=== PATIENT | female | born 1955 | race Caucasian/White ===

== ENCOUNTER 2017-01-31 13:51 | Inpatient (IN) | payer MEDICAID ==
[2017-01-31 15:38] LABS: BASOPHILS 0.1 % (0-2); EOSINOPHILS 1.6 % (0-7); HEMATOCRIT 38.7 % (36.0-48.0); HEMOGLOBIN 12.9 g/dL (12-16); IMMATURE GRANULOCYTES 0.4 % (0-5); LYMPHOCYTES 5.1 % (15-50); MCH 29.1 pg (26.0-34.0); MCHC 33.3 g/dL (31.0-37.0); MCV 87.4 fL (80.0-100.0); MEAN PLATELET VOLUME 9.9 fL (7.4-10.4); MONOCYTES 5.8 % (2-11); PLATELET COUNT 288 10x3/uL (130-400); RBC 4.43 10x6/uL (4.00-5.40); RDW 13.9 % (11.5-14.5); WBC 18.9 10x3/uL (4.8-10.8)
[2017-01-31 15:57] LABS: ANION GAP 15.8 mmol/L (8-16); CALCIUM 9.1 mg/dL (8.5-10.1); CARBON DIOXIDE 25.2 mmol/L (21.0-32.0); CREATININE - SERUM 0.9 mg/dL (0.6-1.3)
--- NOTE | 2017-01-31 18:37 | NUR ---
REPORT RECEIVED FROM GASTON IN THE ER.
--- NOTE | 2017-01-31 19:38 | NUR ---
PATIENT ARRIVED FROM ER VIA STRETCHER, ALERT AND ORIENTED TO ROOM AND CALL LIGHT. FAMILY IS AT BEDSIDE.
--- NOTE | 2017-01-31 19:40 | NUR ---
TELETYPE TELEGRAPHER AT BEDSIDE TO OBTAIN VITALS, CALL LIGHT IN REACH. WILL CONTINUE WITH PLAN OF CARE.
[2017-01-31] MEDS ORDERED: LISINOPRIL-HCTZ1 T13 PO (19:42)
[2017-01-31] MEDS ORDERED: GLIMEPIRIDE4 MG PO (19:43)
[2017-01-31] MEDS ORDERED: NEURONTIN600 MG PO (19:43)
[2017-01-31] MEDS ORDERED: ZANTAC150 MG PO (19:44)
[2017-01-31] MEDS ORDERED: MACRODANTIN100 MG PO (19:44)
[2017-01-31] MEDS ORDERED: LEVAQUIN750 MG PO (19:45)
[2017-01-31] MEDS ORDERED: ZOLOFT100 MG PO (19:45)
[2017-01-31 20:00] VITALS: BP 134/60
[2017-02-01] VITALS: BP 120/62
[2017-02-01 04:00] VITALS: BP 131/57
[2017-02-01 05:33] LABS: BASOPHILS 0.1 % (0-2); EOSINOPHILS 0.2 % (0-7); HEMATOCRIT 33.8 % (36.0-48.0); HEMOGLOBIN 11.4 g/dL (12-16); IMMATURE GRANULOCYTES 0.3 % (0-5); MCH 28.9 pg (26.0-34.0); MCHC 33.7 g/dL (31.0-37.0); MCV 85.8 fL (80.0-100.0); MEAN PLATELET VOLUME 10.2 fL (7.4-10.4); MONOCYTES 6.3 % (2-11); NEUTROPHILS 84.1 % (40-80); PLATELET COUNT 333 10x3/uL (130-400); RBC 3.94 10x6/uL (4.00-5.40); RDW 13.9 % (11.5-14.5); WBC 17.2 10x3/uL (4.8-10.8)
[2017-02-01 05:56] LABS: ANION GAP 13.9 mmol/L (8-16); CALCIUM 8.8 mg/dL (8.5-10.1); CARBON DIOXIDE 23.8 mmol/L (21.0-32.0); CREATININE - SERUM 1.1 mg/dL (0.6-1.3); POTASSIUM - SERUM 3.7 mmol/L (3.5-5.1)
--- NOTE | 2017-02-01 07:17 | NUR ---
PT LAYING TO R SIDE SLEEPING NO S/S DISTRESS NOTED RR EVEN AND UNLABORED WILL CONT TO MONITOR
[2017-02-01 08:03] VITALS: BP 127/74
[2017-02-01 10:05] VITALS: BMI 27.6
--- NOTE | 2017-02-01 10:19 | NUR ---
PT C/O VAUGHN. NO PAIN MEDICATION. PAGED EARNESTINE RICHARD ENROLLMENT COORDINATOR FOR TYLENOL OR IBUPROFEN PER PT REQUEST
[2017-02-01 12:38] VITALS: BP 140/72
[2017-02-01] MEDS ORDERED: GLUCOPHAGE500 MG PO (14:02)
[2017-02-01 16:14] VITALS: BP 120/65
[2017-02-01 20:00] VITALS: BP 109/57
--- NOTE | 2017-02-01 21:00 | NUR ---
PATIENT IS ALERT WITH SPOUSE AT BEDSIDE. DENIES ANY NEEDS AT THIS TIME, CALL LIGHT IN REACH. WILL CONTINUE TO MONITOR.
[2017-02-02] VITALS: BP 116/65
--- NOTE | 2017-02-02 01:44 | NUR ---
PT LYING ON HER RIGHT SIDE, RESTING COMFORTABLY, RESPIRATIONS EVEN AND UNLABORED. CONTINUE TO MONITOR CLOSELY.
[2017-02-02 04:00] VITALS: BP 97/46
[2017-02-02 05:02] LABS: BASOPHILS 0.1 % (0-2); EOSINOPHILS 4.2 % (0-7); HEMATOCRIT 35.2 % (36.0-48.0); HEMOGLOBIN 11.6 g/dL (12-16); IMMATURE GRANULOCYTES 0.3 % (0-5); LYMPHOCYTES 26.2 % (15-50); MCH 28.8 pg (26.0-34.0); MCV 87.3 fL (80.0-100.0); MEAN PLATELET VOLUME 10.2 fL (7.4-10.4); MONOCYTES 7.3 % (2-11); NEUTROPHILS 61.9 % (40-80); PLATELET COUNT 314 10x3/uL (130-400); RBC 4.03 10x6/uL (4.00-5.40); RDW 13.8 % (11.5-14.5); WBC 13.6 10x3/uL (4.8-10.8)
[2017-02-02 05:40] LABS: ALBUMIN 3.1 g/dL (3.4-5.0); ALKALINE PHOSPHATASE 81 U/L (46-116); ALT (SGPT) 32 U/L (10-68); BILIRUBIN - TOTAL 0.16 mg/dL (0.2-1.3); CALCIUM 8.7 mg/dL (8.5-10.1); CARBON DIOXIDE 23.9 mmol/L (21.0-32.0); CHLORIDE - SERUM 102 mmol/L (98-107); MAGNESIUM - SERUM 1.4 mg/dL (1.8-2.4); POTASSIUM - SERUM 3.4 mmol/L (3.5-5.1); PROTEIN - SERUM 6.6 g/dL (6.4-8.2); SODIUM 138 mmol/L (136-145); UREA NITROGEN 13 mg/dL (7-18); eGFR NON AFRICAN AMERICAN 90 mL/min (90-120)
[2017-02-02 05:42] LABS: CALC OSMOLALITY 278 mosm/kg (275-300); CREATININE - SERUM 0.7 mg/dL (0.6-1.3); GLUCOSE 161 mg/dL (74-106)
--- NOTE | 2017-02-02 07:00 | NUR ---
RECEIVED REPORT. ASSUMED CARE OF PATIENT. CALL LIGHT WITHIN REACH. IV FLUIDS INFUSING AT KVO. DENIES NEEDS AT THIS TIME. TELEMETRY PADS REPLACED, SR 64. NO DISTRESS. RESP EVEN AND UNLABORED.
[2017-02-02 08:00] VITALS: BP 102/54
--- NOTE | 2017-02-02 09:01 | NUR ---
EP INITIATED FOR K+ 3.4, LAW REDRAW ORDERED FOR 1300 PER PROTOCOL.
--- NOTE | 2017-02-02 11:42 | NUR ---
FSBS 283. 6 UNITS HUMALOG ADMINISTERED PER SLIDING SCALE. NO DISTRESS.
[2017-02-02 12:00] VITALS: BP 119/92
[2017-02-02 15:59] VITALS: BP 111/57
--- NOTE | 2017-02-02 16:46 | NUR ---
FSBS 307. 8 UNITS HUMALOG ADMINISTERED PER SLIDING SCALE. CONSUMING PM MEAL AT THIS TIME.
--- NOTE | 2017-02-02 18:35 | NUR ---
RESTING IN BED. NO DISTRESS. DENIES NEEDS.
[2017-02-02 20:00] VITALS: BP 131/65
--- NOTE | 2017-02-02 20:56 | NUR ---
HS MED GIVEN WITH FRESH ICE WATER, BS 309, COVERED PER S/S. DENIES PAIN OR NEEDS, BED LOW, CL IN REACH.
--- NOTE | 2017-02-02 23:53 | NUR ---
IN BED WATCHING TV, PT DENIES NEEDS.
[2017-02-03] VITALS: BP 125/69
--- NOTE | 2017-02-03 01:26 | NUR ---
RESTING WITH EYES CLOSED, RESPERATIONS EVEN, NO S/S DISTRESS NOTED.
[2017-02-03 04:00] VITALS: BP 123/81
--- NOTE | 2017-02-03 04:30 | NUR ---
PEARL PELLER AT BED SIDE TO OBTAIN VITALS.
[2017-02-03 05:29] LABS: BASOPHILS 0.2 % (0-2); HEMATOCRIT 34.2 % (36.0-48.0); HEMOGLOBIN 11.2 g/dL (12-16); IMMATURE GRANULOCYTES 0.3 % (0-5); LYMPHOCYTES 24.6 % (15-50); MCH 28.4 pg (26.0-34.0); MCHC 32.7 g/dL (31.0-37.0); MCV 86.8 fL (80.0-100.0); MONOCYTES 6.5 % (2-11); NEUTROPHILS 63.4 % (40-80); PLATELET COUNT 302 10x3/uL (130-400); RBC 3.94 10x6/uL (4.00-5.40); WBC 9.6 10x3/uL (4.8-10.8)
[2017-02-03 05:46] LABS: ALBUMIN 3.1 g/dL (3.4-5.0); ANION GAP 14.6 mmol/L (8-16); BILIRUBIN - TOTAL 0.24 mg/dL (0.2-1.3); CARBON DIOXIDE 26.7 mmol/L (21.0-32.0); CREATININE - SERUM 0.9 mg/dL (0.6-1.3); POTASSIUM - SERUM 4.3 mmol/L (3.5-5.1); PROTEIN - SERUM 6.4 g/dL (6.4-8.2)
--- NOTE | 2017-02-03 07:00 | NUR ---
RECEIVED REPORT. ASSUMED CARE OF PATIENT. CALL LIGHT WITHIN REACH. RESTING WITH EYES OPEN, DENIES NEEDS AT THIS TIME. GRANDSON AT BEDSIDE. NO DISTRESS.
[2017-02-03 08:00] VITALS: BP 113/65
--- NOTE | 2017-02-03 09:36 | NUR ---
OOB TO WHEELCHAIR. PATIENT LEFT UNIT FOR CXR. NO DISTRESS UPON LEAVING UNIT.
--- NOTE | 2017-02-03 11:39 | NUR ---
FSBS 305. 8 UNITS HUMALOG ADMINISTERED PER SLIDING SCALE. NO DISTRESS.
[2017-02-03] MEDS ORDERED: LEVAQUIN500 MG PO (12:57)
--- NOTE | 2017-02-03 14:59 | NUR ---
PATIENT LYING IN BED WITH FAMILY AT BEDSIDE. PATIENT AWAITING DISCHARGE INSTRUCTIONS. NO DISTRESS.
--- NOTE | 2017-02-03 15:22 | NUR ---
22 GAUGE IV REMOVED FROM RIGHT AC. PATIENT IS BEING DISCHARGED TO HOME. NO BLEEDING FROM SITE. 2X2 GAUZE APPLIED AND SECURED WITH TAPE. TOLERATED IV REMOVAL WELL. NO DISTRESS. CATHETER TIP INTACT.
--- NOTE | 2017-02-03 15:41 | NUR ---
1525 DISCHARGE INSTRUCTIONS PROVIDED. PATIENT VERBALIZED UNDERSTANDING OF ALL INSTRUCTIONS PROVIDED FOR FOLLOW UP APPTS AND PICKING UP HER PRESCRIPTION MEDICATIONS CALLED TO THE PHARMACY. 1535 PATIENT LEFT UNIT VIA WHEELCHAIR WITH ALL PERSONAL BELONGINGS. PATIENT IN NO DISTRESS UPON LEAVING UNIT. PATIENT DISCHARGED TO HOME WITH FAMILY VIA PERSONAL CAR.
[2017-02-04 12:13] LABS: IMMUNOGLOBULIN E 7 IU/mL (0-100)
== END 2017-02-03 15:40 | disposition home or self-care (01) | DRG 179 ==
LOC: D.ER 13:51 → D.M2 17:28
PROVIDERS: Internal Medicine Gastroenterology; Internal Medicine Pulmonary Disease; Nurse Practitioner Acute Care; ADMIT Family Medicine
DX: J69.0 Pneumonitis due to inhalation of food and vomit (principal); K21.9 Gastro-esophageal reflux disease without esophagitis; K62.3 Rectal prolapse; E11.65 Type 2 diabetes mellitus with hyperglycemia; E11.40 Type 2 diabetes mellitus with diabetic neuropathy, unspecified; E11.43 Type 2 diabetes mellitus with diabetic autonomic (poly)neuropathy; K31.84 Gastroparesis; D64.9 Anemia, unspecified; I69.991 Dysphagia following unspecified cerebrovascular disease; R13.10 Dysphagia, unspecified; K59.00 Constipation, unspecified; J98.01 Acute bronchospasm; J44.9 Chronic obstructive pulmonary disease, unspecified; Z87.891 Personal history of nicotine dependence

== ENCOUNTER 2017-06-07 13:40 | Emergency (ER) | payer MEDICAID | END 2017-06-07 19:25 | disposition home or self-care (01) | LOC: D.ER 13:40 | DX: S16.1XXA Strain of muscle, fascia and tendon at neck level, initial encounter (principal); V43.52XA Car driver injured in collision with other type car in traffic accident, initial encounter; Y93.89 Activity, other specified; Y92.410 Unspecified street and highway as the place of occurrence of the external cause; I10 Essential (primary) hypertension; E11.9 Type 2 diabetes mellitus without complications ==

== ENCOUNTER 2017-10-10 13:51 | Emergency (ER) | payer MEDICAID ==
[~2017-10-10] VITALS: Ht 172.7 cm; Wt 95.0 kg
[~2017-10-10 13:51] MED LIST: GLIMEPIRIDE4 MG PO; GLUCOPHAGE500 MG PO; LEVAQUIN500 MG PO; LEVAQUIN750 MG PO; LISINOPRIL-HCTZ1 T13 PO; MACRODANTIN100 MG PO; NEURONTIN600 MG PO; ZANTAC150 MG PO; ZOLOFT100 MG PO
[2017-10-10 14:13] VITALS: Ht 172.7 cm; Wt 95.0 kg
[2017-10-10] MEDS ORDERED: DICLOFENAC SODI50 MG PO (18:16)
[2017-10-10 18:24] VITALS: BP 133/80
== END 2017-10-10 18:24 | disposition home or self-care (01) ==
LOC: D.ER 13:51
DX: S32.010A Wedge compression fracture of first lumbar vertebra, initial encounter for closed fracture (principal); W10.9XXA Fall (on) (from) unspecified stairs and steps, initial encounter; Y93.89 Activity, other specified; Y92.019 Unspecified place in single-family (private) house as the place of occurrence of the external cause; M54.5 Low back pain

== ENCOUNTER 2017-10-26 15:20 | Inpatient (IN) | payer MEDICAID ==
[~2017-10-26] VITALS: Ht 174.5 cm; Wt 92.0 kg
[~2017-10-26 15:20] MED LIST changes: +DICLOFENAC SODI50 MG PO
[2017-10-26 16:26] LABS: BASOPHILS 0.3 % (0-2); EOSINOPHILS 3.3 % (0-7); HEMATOCRIT 42.8 % (36.0-48.0); HEMOGLOBIN 14.3 g/dL (12-16); IMMATURE GRANULOCYTES 0.2 % (0-5); LYMPHOCYTES 24.1 % (15-50); MCH 28.9 pg (26.0-34.0); MCHC 33.4 g/dL (31.0-37.0); MCV 86.5 fL (80.0-100.0); MEAN PLATELET VOLUME 10.5 fL (7.4-10.4); MONOCYTES 8.6 % (2-11); NEUTROPHILS 63.5 % (40-80); PLATELET COUNT 357 10x3/uL (130-400); RBC 4.95 10x6/uL (4.00-5.40); RDW 13.1 % (11.5-14.5); WBC 12.4 10x3/uL (4.8-10.8)
[2017-10-26 16:36] LABS: APPEARANCE CLEAR (CLEAR); BILIRUBIN NEGATIVE (NEGATIVE); COLOR YELLOW (YELLOW); GLUCOSE 1000 mg/dL (NEGATIVE); KETONE NEGATIVE (NEGATIVE); NITRITE NEGATIVE (NEGATIVE); PROTEIN NEGATIVE (NEGATIVE); UROBILINOGEN NORMAL (NORMAL)
[2017-10-26 16:37] LABS: WHITE CELLS - URINE 0-5 /hpf (0-5)
[2017-10-26 16:38] LABS: BACTERIA FEW /hpf (NONE SEEN); EPITHELIAL CELLS 0-5 /hpf (0-5); RED CELLS - URINE 0-5 /hpf (0-5)
[2017-10-26 16:39] LABS: GRANULAR CAST OCC /lpf (NONE SEEN); YEAST NONE SEEN /hpf (NONE SEEN)
[2017-10-26 16:53] LABS: ALBUMIN 4.2 g/dL (3.4-5.0); ALKALINE PHOSPHATASE 144 U/L (46-116); ALT (SGPT) 31 U/L (10-68); BILIRUBIN - TOTAL 0.33 mg/dL (0.2-1.3); CALCIUM 9.2 mg/dL (8.5-10.1); CARBON DIOXIDE 25.6 mmol/L (21.0-32.0); CHLORIDE - SERUM 95 mmol/L (98-107); CREATINE KINASE 38 UL (21-215); CREATININE - SERUM 1.9 mg/dL (0.6-1.3); POTASSIUM - SERUM 4.1 mmol/L (3.5-5.1); PROTEIN - SERUM 8.4 g/dL (6.4-8.2); SODIUM 131 mmol/L (136-145); TROPONIN-I < 0.017 ng/mL (0.000-0.060); UREA NITROGEN 17 mg/dL (7-18); eGFR NON AFRICAN AMERICAN 28 mL/min (90-120)
[2017-10-26 16:56] LABS: CALC OSMOLALITY 288 mosm/kg (275-300); GLUCOSE 530 mg/dL (74-106)
[2017-10-26 17:23] LABS: PRO BNP 52 pg/mL (0-125); THYROID STIMULATING HORMONE 2.73 uIU/mL (0.36-3.74)
[2017-10-26 18:26] VITALS: BP 141/60
[2017-10-26 19:30] VITALS: BP 141/68
[2017-10-26 20:30] VITALS: BP 124/60
[2017-10-26 22:16] VITALS: BP 141/59; BMI 30.3
[2017-10-26] MEDS ORDERED: LANTUS INSULIN10 ML (22:34)
[2017-10-26] MEDS ORDERED: HUMULIN R100 U/ML (22:35)
[2017-10-27] VITALS (9 sets, daily range): BP systolic 112–187; BP diastolic 55–72
[2017-10-28] VITALS: BP 170/72
[2017-10-28 04:00] VITALS: BP 163/49
[2017-10-28 04:53] LABS: BASOPHILS 0.3 % (0-2); EOSINOPHILS 5.6 % (0-7); HEMATOCRIT 36.2 % (36.0-48.0); IMMATURE GRANULOCYTES 0.1 % (0-5); LYMPHOCYTES 33.7 % (15-50); MCH 28.2 pg (26.0-34.0); MCHC 33.1 g/dL (31.0-37.0); MEAN PLATELET VOLUME 10.3 fL (7.4-10.4); MONOCYTES 9.2 % (2-11); NEUTROPHILS 51.1 % (40-80); PLATELET COUNT 294 10x3/uL (130-400); RBC 4.26 10x6/uL (4.00-5.40); RDW 13.1 % (11.5-14.5)
[2017-10-28 05:19] LABS: ANION GAP 11.8 mmol/L (8-16); CALCIUM 8.9 mg/dL (8.5-10.1); CHOL - HDL RATIO 7.7 ratio (2.3-4.1); CREATININE - SERUM 0.9 mg/dL (0.6-1.3); POTASSIUM - SERUM 3.8 mmol/L (3.5-5.1)
[2017-10-28 08:00] VITALS: BP 154/63
[2017-10-28 08:44] VITALS: BP 129/86
[2017-10-28 10:01] VITALS: Ht 174.5 cm; Wt 92.0 kg
[2017-10-28 12:36] VITALS: BP 169/74
[2017-10-28 17:45] VITALS: BP 145/64
[2017-10-29] VITALS: BP 154/63
[2017-10-29 05:40] LABS: BASOPHILS 0.4 % (0-2); EOSINOPHILS 4.6 % (0-7); HEMATOCRIT 33.8 % (36.0-48.0); HEMOGLOBIN 11.2 g/dL (12-16); IMMATURE GRANULOCYTES 0.2 % (0-5); LYMPHOCYTES 30.9 % (15-50); MCH 28.2 pg (26.0-34.0); MCHC 33.1 g/dL (31.0-37.0); MCV 85.1 fL (80.0-100.0); MEAN PLATELET VOLUME 10.3 fL (7.4-10.4); MONOCYTES 7.8 % (2-11); NEUTROPHILS 56.1 % (40-80); PLATELET COUNT 274 10x3/uL (130-400); RBC 3.97 10x6/uL (4.00-5.40); RDW 13.2 % (11.5-14.5); WBC 8.5 10x3/uL (4.8-10.8)
[2017-10-29 05:49] LABS: ANION GAP 10.2 mmol/L (8-16); CALCIUM 8.7 mg/dL (8.5-10.1); CREATININE - SERUM 0.9 mg/dL (0.6-1.3); POTASSIUM - SERUM 4.2 mmol/L (3.5-5.1)
[2017-10-29 07:00] VITALS: BP 152/72
[2017-10-29 11:00] VITALS: BP 178/70
== END 2017-10-29 13:46 | disposition home or self-care (01) | DRG 638 ==
LOC: D.ER 15:20 → D.EDHOLD 17:34 → D.M2 17:34
PROVIDERS: Emergency Medicine; Internal Medicine Nephrology
DX: E11.65 Type 2 diabetes mellitus with hyperglycemia (principal); N17.9 Acute kidney failure, unspecified; E87.1 Hypo-osmolality and hyponatremia; I10 Essential (primary) hypertension; Z91.19 Patient's noncompliance with other medical treatment and regimen; F32.9 Major depressive disorder, single episode, unspecified; Z86.73 Personal history of transient ischemic attack (TIA), and cerebral infarction without residual deficits; Z87.891 Personal history of nicotine dependence

== ENCOUNTER 2018-02-27 15:31 | Day surgery (SDC) | payer MEDICAID ==
[~2018-02-27] VITALS: Ht 174.5 cm; Wt 88.6 kg
--- NOTE | ~2018-02-27 | OP ---
PATIENT NAME: VESTA PAYAN MEDICAL RECORD: [id number] :53 LOCATION:[id number] ADMISSION DATE:02/27/18 SURGEON: TERENCE MCCLELLAN MD DATE OF OPERATION: 02/28/2018 PREOPERATIVE DIAGNOSES: 1. Acute appendicitis with localized peritonitis. 2. Diabetes mellitus. 3. Hypertension. 4. Gastroesophageal reflux disease. 5. History of cerebrovascular accident. POSTOPERATIVE DIAGNOSES: 1. Acute appendicitis with localized peritonitis. 2. Diabetes mellitus. 3. Hypertension. 4. Gastroesophageal reflux disease. 5. History of cerebrovascular accident. PROCEDURE: Laparoscopic appendectomy. SURGEON: Terence Mcclellan MD REPORT OF PROCEDURE: The patient's abdomen was prepped and draped in sterile fashion. A cutdown was made on the superior aspect of the umbilicus. The 0 Vicryls were placed in the fascia bilaterally and the fascia was incised with a 15-blade. I then bluntly entered the peritoneal cavity and placed a 12-mm Ragini port. Under direct visualization, a 5-mm trocar was placed in the left lower quadrant. The patient had a significant amount of adhesions in the pelvis and lower midline from the previous open hysterectomy. A tedious dissection was performed for approximately 30 minutes to take down these adhesions. The adhesions were of the omentum to the anterior abdominal wall and to the anterior pelvis. We eventually were able to free up these adhesions enough to where I was able to place another 5-mm trocar in the suprapubic region. Once this was done, then we were able to localize the patient's cecum. Posterior to the cecum adherent to the lateral wall was inflamed appendix with no signs of perforation or abscess. The appendix was elevated and a window was made at the base of the appendix and the mesoappendix. The mesoappendix was transected with a 45 white load Endo-KWESI stapler. The appendix was then transected at its base using a 45 blue load Endo-KWESI stapler. The area was irrigated out thoroughly with normal saline and care was taken to assure there was no sign of any active bleeding. The appendix was placed into an Endo Catch bag and then removed through the umbilical port. The ports and insufflation were then removed. The 12-mm trocar site fascia was closed with interrupted 0 Vicryls times 3. The wounds were irrigated out with normal saline and infused with 10 mL of 0.25% Marcaine with epinephrine. The skin incisions were all closed with subcutaneous 5-0 Monocryl and dressed appropriately. COMPLICATIONS: None. CONDITION: Stable. ANESTHESIA: General endotracheal and local. BLOOD LOSS: Minimal. OPERATIVE REPORT [id number] VESTA PAYAN TRANSINT:[id number] Voice Confirmation ID: [id number] DOCUMENT ID: [id number] TERENCE MCCLELLAN MD at 1514 CC: [id number] DICTATION DATE: 02/28/18 110 CASEY SAW OPERATOR: 02/28/18 1257 ADM IN [facility] [address] [id number]
[~2018-02-27 15:31] MED LIST changes: +HUMULIN R100 U/ML; +LANTUS INSULIN10 ML
[2018-02-27] MEDS ORDERED: FENOFIBRATE160 MG PO (15:45)
[2018-02-27] MEDS ORDERED: ERYTHROMYC200 MG/5 M PO (15:45)
[2018-02-27 16:25] LABS: BASOPHILS 0.1 % (0-2); EOSINOPHILS 0.5 % (0-7); HEMATOCRIT 36.9 % (36.0-48.0); HEMOGLOBIN 12.2 g/dL (12-16); IMMATURE GRANULOCYTES 0.4 % (0-5); LYMPHOCYTES 13.4 % (15-50); MCH 28.2 pg (26.0-34.0); MCHC 33.1 g/dL (31.0-37.0); MCV 85.2 fL (80.0-100.0); MEAN PLATELET VOLUME 10.2 fL (7.4-10.4); MONOCYTES 6.9 % (2-11); NEUTROPHILS 78.7 % (40-80); PLATELET COUNT 427 10x3/uL (130-400); RBC 4.33 10x6/uL (4.00-5.40); WBC 20.1 10x3/uL (4.8-10.8)
[2018-02-27 16:38] LABS: APPEARANCE CLEAR (CLEAR); BACTERIA NONE SEEN /hpf (NONE SEEN); BILIRUBIN NEGATIVE (NEGATIVE); COLOR YELLOW (YELLOW); EPITHELIAL CELLS NSEEN /hpf (0-5); GLUCOSE 1000 mg/dL (NEGATIVE); KETONE NEGATIVE (NEGATIVE); NITRITE NEGATIVE (NEGATIVE); PROTEIN NEGATIVE (NEGATIVE); RED CELLS - URINE NONE SEEN /hpf (0-5); UROBILINOGEN NORMAL (NORMAL); WHITE CELLS - URINE NSEEN /hpf (0-5)
[2018-02-27 16:42] LABS: ALBUMIN 3.8 g/dL (3.4-5.0); ANION GAP 15.9 mmol/L (8-16); BILIRUBIN - TOTAL 0.34 mg/dL (0.2-1.3); CALCIUM 9.6 mg/dL (8.5-10.1); POTASSIUM - SERUM 3.9 mmol/L (3.5-5.1); PROTEIN - SERUM 8.1 g/dL (6.4-8.2)
[2018-02-27 19:28] VITALS: BP 121/60
[2018-02-27 20:00] VITALS: BP 149/62
[2018-02-27] MEDS ORDERED: PRINZIDE 20/12.1 TA1 PO (21:03)
[2018-02-27 23:03] VITALS: BP 149/62; BMI 29.1
[2018-02-28] VITALS (11 sets, daily range): BP systolic 123–143; BP diastolic 52–70; Ht 174.5 cm; Wt 88.6 kg
[2018-02-28] MEDS ORDERED: NORCO 10-325 TA1 TAB PO (15:13)
== END 2018-02-28 17:10 | disposition home or self-care (01) ==
LOC: OBSVTIME → D.ER 15:31 → D.OPS 15:31 → D.EDHOLD 19:01 → D.ER 19:01 → D.MS 19:01 → OBSVTIME 19:02 → D.EDHOLD 20:12 → D.MS 20:12 → D.ER 20:36 → EDSTATUS 02-28 11:15 → D.MS 02-28 17:10 → D.OPS 02-28 17:10 → D.MS 02-28 17:10
PROVIDERS: Family Medicine
DX: K35.30 Acute appendicitis with localized peritonitis, without perforation or gangrene (principal); E11.9 Type 2 diabetes mellitus without complications; I10 Essential (primary) hypertension; K21.9 Gastro-esophageal reflux disease without esophagitis; Z86.73 Personal history of transient ischemic attack (TIA), and cerebral infarction without residual deficits; Z01.812 Encounter for preprocedural laboratory examination

== ENCOUNTER 2018-05-26 09:51 | Day surgery (SDC) | payer MEDICAID ==
[~2018-05-26] VITALS: Ht 170.2 cm; Wt 89.8 kg
--- NOTE | 2018-05-26 09:35 | HP ---
PATIENT: DAXA PAYAN MEDICAL RECORD: [id number] ACCOUNT: [id number] LOCATION:[facility] : 53 ADMISSION DATE: 05/26/18 PCP: HISTORY AND PHYSICAL EXAMINATION HISTORY: Daxa is 63 years old. She has had hoarseness and a mass on the left side of the larynx. She is being admitted for microsuspension, laryngoscopy, and excision of left laryngeal mass. PAST MEDICAL HISTORY: Includes diabetes, hypertension, reflux, and CVA. PAST SURGICAL HISTORY: Includes appendectomy, cholecystectomy, and hysterectomy. CURRENT MEDICATIONS: Include gabapentin, lisinopril, Zoloft, Lantus insulin, erythromycin, fenofibrate, and aspirin. ALLERGIES: CODEINE. PHYSICAL EXAMINATION: GENERAL: She has a hoarse voice. FACE: Normal and symmetric. No lesions. EYES: Sclerae and conjunctivae are normal. NOSE: No masses, polyps, or drainage. ORAL CAVITY AND OROPHARYNX: Tongue protrudes in midline. She has an upper partial plate. NECK: No masses. No adenopathy. Good flexibility. CHEST: Clear. CARDIOVASCULAR: Regular rate and rhythm. No murmur. EXTREMITIES: Normal. Laryngoscopy reveals a partially slightly pedunculated mass on the left true cord. It is large enough and floppy enough that it is hard to tell exactly where it is attached, but it looks like on the superior surface of the true cord. IMPRESSION: Hoarseness and laryngeal mass. PLAN: Microsuspension, laryngoscopy, and excision of the left cord mass. TRANSINT:[id number] Voice Confirmation ID: [id number] DOCUMENT ID: [id number] HETAL JOHNSON MD at 0935 CC: [id number] DICTATION DATE: 05/23/18 1511 SURFBOARD DESIGNER: 05/23/18 1538 PRE [facility] [address] [id number]
[~2018-05-26 09:51] MED LIST changes: +ERYTHROMYC200 MG/5 M PO; +FENOFIBRATE160 MG PO; +NORCO 10-325 TA1 TAB PO; +PRINZIDE 20/12.1 TA1 PO
[2018-05-26 10:29] LABS: HEMATOCRIT 36.5 % (36.0-48.0); HEMOGLOBIN 11.7 g/dL (12-16); MCH 27.4 pg (26.0-34.0); MCHC 32.1 g/dL (31.0-37.0); MCV 85.5 fL (80.0-100.0); MEAN PLATELET VOLUME 10.1 fL (7.4-10.4); RBC 4.27 10x6/uL (4.00-5.40); RDW 14.6 % (11.5-14.5); WBC 10.7 10x3/uL (4.8-10.8)
[2018-05-26 10:32] LABS: ANION GAP 14.1 mmol/L (8-16); CARBON DIOXIDE 27.2 mmol/L (21.0-32.0); CREATININE - SERUM 1.2 mg/dL (0.6-1.3); POTASSIUM - SERUM 4.3 mmol/L (3.5-5.1)
[2018-05-26] MEDS ORDERED: BAYER CHEWABLE81 MG (11:27)
[2018-05-26 11:47] VITALS: Ht 170.2 cm; Wt 89.8 kg
--- NOTE | 2018-05-26 15:01 | NUR ---
DC INSTRUCTIONS GIVEN TO PT/FAMILY. STATE UNDERSTANDING. DC'D IV CATH FULLY INTACT.
--- NOTE | 2018-05-26 15:13 | NUR ---
PT LEFT UNIT VIA WC AT 1510
--- NOTE | 2018-05-26 17:09 | OP ---
PATIENT NAME: VESTA PAYAN MEDICAL RECORD: [id number] :53 [facility] ADMISSION DATE: SURGEON: SURENDRA PANDYA MD DATE OF OPERATION: 05/26/2018 PREOPERATIVE DIAGNOSIS: Hoarseness and left vocal cord lesion. POSTOPERATIVE DIAGNOSIS: Hoarseness and left vocal cord lesion. PROCEDURES: Microsuspension laryngoscopy and excision of left vocal cord lesion. SURGEON: Surendra Pandya MD ANESTHESIA: General orotracheal. BLOOD LOSS: Less than 1 mL. COMPLICATIONS: None. SPECIMENS: A 1 cm firm left vocal cord mass. COMPLICATIONS: None. DISPOSITION: Recovery, stable. DESCRIPTION OF PROCEDURE: She was brought to the operating room and placed in supine position, sedated and intubated by anesthesia. The table was turned 90 degrees. Head drapes applied and she was positioned for laryngoscopy. Her upper partial was removed. The scope was initially used to examine the hypopharynx and larynx, but the posterior larynx could be visualized, but could not visualize the anterior cords of the lesion. Anterior commissure scope was then inserted and the cords were examined. The lesion could be visualized on the anterior left cord. She was placed in suspension. The microscope was brought in. Using upbiting forceps and scissors, the mass was moved to the right, away from the cord and scissors were used to trim it off smoothly with the left cord, removing a small amount of normal mucosa, but just barely manipulating the cord and removing the entire slightly pedunculated mass. This was sent for specimen. The area was then carefully examined. The cord was smoothed with just a tiny area where the mass had been being removed. The rest of the cords were normal. No other lesions were identified. The subglottis and upper trachea were normal. The laryngoscope was removed. She was awakened, extubated, and transported to recovery in good condition. No complications. TRANSINT:[id number] Voice Confirmation ID: [id number] DOCUMENT ID: [id number] SURENDRA PANDYA MD at 1709 CC: [id number] DICTATION DATE: 05/26/18 1405 SAXOPHONE PLAYER: 05/26/18 1529 [facility] 05/26/18 [place] [id number]
== END 2018-05-26 15:10 | disposition home or self-care (01) ==
LOC: D.OPS 09:51 → D.PAN 14:40 → D.OPS 15:10
PROVIDERS: Anesthesiology
DX: J38.3 Other diseases of vocal cords (principal); R49.0 Dysphonia; E11.9 Type 2 diabetes mellitus without complications; I10 Essential (primary) hypertension; K21.9 Gastro-esophageal reflux disease without esophagitis; Z86.73 Personal history of transient ischemic attack (TIA), and cerebral infarction without residual deficits

== ENCOUNTER 2019-04-27 10:45 | Emergency (ER) | payer MEDICARE, BC ==
[~2019-04-27] VITALS: Ht 170.2 cm; Wt 908.2 kg
[~2019-04-27 10:45] MED LIST changes: +BAYER CHEWABLE81 MG
[2019-04-27 10:50] VITALS: Ht 170.2 cm; Wt 908.2 kg
[2019-04-27] MEDS ORDERED: PROTONIX40 MG (10:58)
[2019-04-27 11:34] LABS: CALC OSMOLALITY 266 mosm/kg (275-300); CALCIUM 8.7 mg/dL (8.5-10.1); CARBON DIOXIDE 24.4 mmol/L (21.0-32.0); CHLORIDE - SERUM 93 mmol/L (98-107); CREATININE - SERUM 1.1 mg/dL (0.6-1.3); POTASSIUM - SERUM 3.3 mmol/L (3.5-5.1); SODIUM 129 mmol/L (136-145); UREA NITROGEN 12 mg/dL (7-18); eGFR NON AFRICAN AMERICAN 53 mL/min (90-120)
[2019-04-27 11:38] LABS: GLUCOSE 245 mg/dL (74-106)
[2019-04-27 11:40] LABS: BASOPHILS 0.2 % (0-2); EOSINOPHILS 1.4 % (0-7); HEMATOCRIT 36.1 % (36.0-48.0); IMMATURE GRANULOCYTES 0.3 % (0-5); LYMPHOCYTES 22.7 % (15-50); MCH 27.7 pg (26.0-34.0); MCHC 33.2 g/dL (31.0-37.0); MCV 83.4 fL (80.0-100.0); MEAN PLATELET VOLUME 9.8 fL (7.4-10.4); MONOCYTES 7.7 % (2-11); NEUTROPHILS 67.7 % (40-80); PLATELET COUNT 340 10x3/uL (130-400); RBC 4.33 10x6/uL (4.00-5.40); RDW 14.7 % (11.5-14.5); WBC 14.6 10x3/uL (4.8-10.8)
[2019-04-27 11:43] LABS: ALBUMIN 3.5 g/dL (3.4-5.0); ALKALINE PHOSPHATASE 95 U/L (46-116); ALT (SGPT) 27 U/L (10-68); AMYLASE - SERUM 32 U/L (25-115); LIPASE 122 U/L (73-393); PROTEIN - SERUM 7.5 g/dL (6.4-8.2)
[2019-04-27 11:44] LABS: TROPONIN-I < 0.017 ng/mL (0.000-0.060)
[2019-04-27 13:51] LABS: APPEARANCE CLEAR (CLEAR); BILIRUBIN NEGATIVE (NEGATIVE); COLOR YELLOW (YELLOW); GLUCOSE NEGATIVE (NEGATIVE); KETONE NEGATIVE (NEGATIVE); NITRITE NEGATIVE (NEGATIVE); PROTEIN NEGATIVE (NEGATIVE); UROBILINOGEN NORMAL (NORMAL)
[2019-04-27] MEDS ORDERED: PROBIOTIC1 EAC1 PO (14:20)
[2019-04-27 14:31] VITALS: BP 129/59
== END 2019-04-27 14:32 | disposition home or self-care (01) ==
LOC: D.ER 10:45
PROVIDERS: Family Medicine
DX: K57.90 Diverticulosis of intestine, part unspecified, without perforation or abscess without bleeding (principal); R10.9 Unspecified abdominal pain; Z86.73 Personal history of transient ischemic attack (TIA), and cerebral infarction without residual deficits; E11.9 Type 2 diabetes mellitus without complications; I10 Essential (primary) hypertension; Z79.4 Long term (current) use of insulin

== ENCOUNTER → 2019-12-21 12:18 | Outpatient (CLI) | payer MEDICARE, BC ==
[2019-04-27 10:50] VITALS: BMI 313.8
[~2019-12-21 12:18] MED LIST changes: +PROBIOTIC1 EAC1 PO; +PROTONIX40 MG
== END | disposition home or self-care (01) ==
LOC: D.RAD 12:18
PROVIDERS: ATTEND Otolaryngology
DX: R13.14 Dysphagia, pharyngoesophageal phase (principal)